=== PATIENT | female | born 1985 | race Caucasian/White ===

== ENCOUNTER → 2016-12-09 03:35 | Observation (INO) ==
--- NOTE | 2016-12-09 07:32 | OB/GYN Progress Note ---
Date of Encounter: 12/09/16 Time of Encounter: 07:30 - Assessment and Plan (1) 34 weeks gestation of Status: Acute (2) Decreased movement Status: Acute Pt reported movement. on admission. reactive NST with pt reports of frequent movement. Discharged home with labor and when to return to triage precautions. Qualifiers: Fetus number: single or unspecified fetus Trimester: third trimester Qualified Code(s): O36.8130 - Decreased movements, third trimester, not applicable or unspecified (3) NST (non-stress test) reactive Status: Acute baseline 135 Subjective - Subjective Interval history: Pt called CNM and stated her house had been painted with [place] yesterday with windows closed and AC on and now she had a headache, nausea and decreased movement that evening, but pt stated lots of movement in the morning and afternoon. Pt worried about baby, did not want to stay at home and do kick counts, denied contractions vaginal bleeding or leaking of fluid. Antepartum ROS: new complaints, no loss of fluid, no vaginal bleeding, no movement normal, no contractions Objective - Vital Signs Vital Signs: Intake and Output 12/08/16 12/08/16 12/09/16 15:59 23:59 07:59 Other: Weight 102.3 kg Patient Weight 12/09/16 23:59 Weight 102.3 kg - Exam FHR: auscultation normal FHR comments: Baseline 135 Abdomen: Present: normal appearance Cervical dilation: 1/thick/high per RN
== END | disposition home or self-care (01) ==
LOC: 1NENULAB
PROVIDERS: ADMIT Advanced Practice Midwife; ATTEND Advanced Practice Midwife

== ENCOUNTER → 2016-12-20 17:00 | Observation (INO) ==
[2016-12-20 16:07] LABS: Bilirubin,Urine Negative (Negative); Blood,Urine Negative (Negative); Clarity,Urine Clear (Clear); Color,Urine Yellow (Yellow); Glucose,Urine (UA) Normal (Normal); Ketones,Urine Negative (Negative); Leukocyte Esterase,Urine Negative (Negative); Nitrite,Urine Negative (Negative); PH,Urine 6.5 pH Units (5.0-8.0); Protein,Urine Negative (Neg-Trace); Specific Gravity,Urine 1.007 (1.010-1.025); Urobilinogen,Urine Normal (Normal)
--- NOTE | 2016-12-20 16:19 | OB/GYN Progress Note ---
Date of Encounter: 12/20/16 Time of Encounter: 16:08 - Assessment and Plan (1) False labor Current Visit: Yes Status: Acute No cervical change x2 exams Comfort measures discussed and precautions given Benadryl to help sleep Patient told to return if contractions worsen (2) 36 weeks gestation of Current Visit: Yes Status: Acute Will check GBS status Patient discharged in stable condition (3) NST (non-stress test) reactive Current Visit: No Status: Acute baseline 125 bpm moderate variability (4) Trichomonas infection Current Visit: Yes Status: Acute Infection noted on screen on 11/01/16 Flagyl was sent to pharmacy, but patient did not pick it up Will start flagyl 2 g once Will schedule for test of cure, but patient will most likely deliver beforehand (5) Obesity affecting in third trimester, antepartum Current Visit: Yes Status: Acute Subjective - Subjective Principal diagnosis: contractions Interval history: Patient is a 31 year-old female who presents to labor and delivery with contractions. Current is at 36 weeks and 2 days. Patients reports having contractions starting about 2 days ago, experienced as sharp pain, particularly in the back They have been as frequent as every 2-3 minutes, but the intensity and frequency have waxed and waned since starting. She admits to some nausea, but denies vomiting, diarrhea, and chest pain. She admits to headaches over the past three weeks, but denies visual disturbance and epigastric pain. She has been consistently normotensive in the office over that time period. Patient reports good movement. Patient denies vaginal bleeding and leakage of fluid. The patient's has been complicated by trichomonas, which she tested positive for on 11/01/16 and was given flagyl. She was last seen in the office by Dr. Girard on 12/14/16. Blood type: Rubella and Varicella Immune Hep B negative GBS unknown Trichomonas and Leanna positive on 11/01 All other serologies negative Antepartum ROS: movement normal, contractions, no loss of fluid, no vaginal bleeding Objective - Vital Signs Vital Signs: Intake and Output 12/20/16 12/20/16 12/20/16 07:59 15:59 23:59 Other: Weight 103.3 kg Patient Weight 12/20/16 23:59 Weight 103.3 kg - Exam Abdomen: Present: normal appearance, soft, gravid. Absent: tenderness Uterus: Present: normal, firm Cervical dilation: 1-2 Cervix effacement: 70% station: -2
== END | disposition home or self-care (01) ==
LOC: 1NENULAB
PROVIDERS: ADMIT Obstetrics & Gynecology; ATTEND Obstetrics & Gynecology

== ENCOUNTER → 2016-12-26 01:41 | Observation (INO) ==
--- NOTE | 2016-12-26 00:48 | OB/GYN Progress Note ---
Date of Encounter: 12/26/16 Time of Encounter: 12:30 - Assessment and Plan (1) 37 weeks gestation of Current Visit: Yes Status: Acute Evaluate for labor. Sterile cervical exams. Monitor FHT, tocometry. Will discharge if no labor progression. (2) Headache in Current Visit: Yes Status: Acute Cranial nerve exam unremarkable. Blood pressure WNL. PIH labs - WNL. Urine Protein:Creatinine ratio - WNL. Qualifiers: Qualified Code(s): O26.899 - Other specified related conditions, unspecified trimester; R51 - Headache (3) Petechiae Current Visit: Yes Status: Acute Medial tibia, bilaterally. CBC - platelets normal, no thrombocytopenia Subjective - Subjective Principal diagnosis: Labor evaluation, headache Interval history: Virgie Seay, 31F, at 37+1, presents to labor and delivery for complaint of pelvic pressure, new onset headache, and rash on both legs. Pt states she feels pressure but no contractions. Headache started during the day 9/, is diffuse, with pressure in the eyes, no blurry vision or nausea/vomiting, numbness or tingling. Rash started 2 days ago, is not warm to touch, non-tender , non-pruritic, non-blanching, pt reports no recent history of trauma/abrasion to area. Antepartum ROS: movement normal, no loss of fluid, no vaginal bleeding, no contractions Objective - Vital Signs Vital Signs: Intake and Output 12/25/16 12/25/16 12/26/16 15:59 23:59 07:59 Other: Weight 103.3 kg - Exam FHR: auscultation normal FHR comments: Baseline 130 Auscultation: bilateral: normal Abdomen: Present: normal appearance, gravid Cervical dilation: 2, posterior
[2016-12-26 00:51] LABS: Basophils # 0.1 K/mcL (0.0-0.2); Basophils % 0.4 %; Eosinophils # 0.2 K/mcL (0.0-0.6); Eosinophils % 1.1 %; Hematocrit 36.4 % (35.3-44.9); Hemoglobin 12.1 g/dL (11.5-15.4); Immature Granulocytes % 1.5 % (0-4); Lymphocytes # 2.1 K/mcL (0.6-4.6); Lymphocytes % 15.2 %; Mean Corpuscular HGB Conc 33.2 g/dL (31.6-35.5); Mean Corpuscular Hemoglobin 31.6 pg (28.0-33.3); Mean Platelet Volume 10.9 fL (9.4-12.4); Monocytes # 0.9 K/mcL (0.0-1.3); Monocytes % 6.6 %; Neutrophils # 10.2 K/mcL (1.6-8.9); Platelet Count 162 K/mcL (140-400); Red Blood Count 3.83 M/mcL (3.82-4.97); Segmented Neutrophils % 75.2 %
[2016-12-26 01:04] LABS: Alanine Aminotransferase 15 Units/L (0-55); Aspartate Amino Transferase 15 Units/L (5-34); BUN/Creatinine Ratio 11 (6-26); Blood Urea Nitrogen 8 mg/dL (7-20); Lactate Dehydrogenase 156 Units/L (159-327); Uric Acid 5.6 mg/dL (2.6-6.0); eGFR For African Americans > 60 (> 60); eGFR For Non-African Americans > 60 (> 60)
[2016-12-26 01:04] LABS: Amphetamine Screen,Urine Negative ng/mL (Cutoff=1000); Barbiturate Screen,Urine Negative ng/mL (Cutoff=200); Benzodiazepines Screen,Urine Negative ng/mL (Cutoff=200); Cannabinoid Screen,Urine Negative ng/mL (Cutoff = 50); Cocaine Screen,Urine Negative ng/mL (Cutoff= 300); Opiate Screen,Urine Negative ng/mL (Cutoff=300); Phencyclidine Screen,Urine Negative ng/mL (Cutoff=25)
[2016-12-26 01:07] LABS: Protein/Creatinine Ratio,Urine 0.12 mg/mg (0-0.20)
[~2016-12-26 01:41] MED LIST: Acetaminophen/Butalbital/CaffeineTABLET PO ONE
== END | disposition home or self-care (01) ==
LOC: 1NENULAB
PROVIDERS: ADMIT Student in an Organized Health Care Education/Training Program; ATTEND Student in an Organized Health Care Education/Training Program

== ENCOUNTER 2017-01-05 17:52 | Observation (INO) ==
[2017-01-05 19:40] LABS: Bilirubin,Urine Negative (Negative); Blood,Urine Negative (Negative); Clarity,Urine Cloudy (Clear); Color,Urine Yellow (Yellow); Glucose,Urine (UA) Normal (Normal); Ketones,Urine Negative (Negative); Leukocyte Esterase,Urine Small (Negative); Nitrite,Urine Negative (Negative); Protein,Urine Negative (Neg-Trace); Specific Gravity,Urine 1.018 (1.010-1.025); Urobilinogen,Urine Normal (Normal)
[2017-01-05 19:42] LABS: Bacteria,Urine Few per hpf (None-Few); Hyaline Casts,Urine None Seen per lpf (None-Few); RBC,Urine 0-3 per hpf (0-3); Squamous Epithelial Cell,Urine Many per lpf (None-Few); WBC,Urine 15-30 per hpf (0-3)
[2017-01-05 19:52] LABS: Uric Acid Crystals,Urine Present
--- NOTE | 2017-01-05 20:13 | OB/GYN Progress Note ---
Date of Encounter: 01/05/17 Time of Encounter: 20:10 - Assessment and Plan (1) Uterine contractions Current Visit: Yes Status: Acute No change in cervical exam after 2 hours, patient remains 3/100/-2. tracing reactive. UA sent for culture no indications to treat at this time. Discharged home with labor and when to return to triage precautions. Patient family verbalized understanding (2) 38 weeks gestation of Current Visit: Yes Status: Acute (3) NST (non-stress test) reactive Current Visit: Yes Status: Acute Baseline 130 Subjective - Subjective Interval history: 38+4 presents to triage with complaints of "menstrual pain". Patient states the pain has been going on since this morning and has strongly become stronger and more intense, patient states occasional contractions. Reports good movement, denies leaking of fluid or vaginal bleeding. Patient states she was 2/80 at last cervical exam Antepartum ROS: movement normal, contractions, no loss of fluid, no vaginal bleeding Objective - Vital Signs Vital Signs: Intake and Output 01/05/17 01/05/17 01/05/17 07:59 15:59 23:59 Other: Weight 102.9 kg Patient Weight 01/05/17 23:59 Weight 102.9 kg - Exam FHR: auscultation normal FHR comments: Baseline 130 Auscultation: bilateral: normal Abdomen: Present: normal appearance, soft, gravid Cervical dilation: 3/100/-2 - Labs Labs: Abnormal lab results Urine Clarity Cloudy (Clear) A 01/05/17 19:25 Ur Leukocyte Esterase Small (Negative) H 01/05/17 19:25 Urine Microscopic WBC 15-30 per hpf (0-3) H 01/05/17 19:25 Ur Squamous Epith Cells Many per lpf (None-Few) H 01/05/17 19:25 Ur Culture Indicated? YES (NO) A 01/05/17 19:25
[2017-01-05 22:08] LABS: Amphetamine Screen,Urine Negative ng/mL (Cutoff=1000); Barbiturate Screen,Urine Negative ng/mL (Cutoff=200); Benzodiazepines Screen,Urine Negative ng/mL (Cutoff=200); Cannabinoid Screen,Urine Negative ng/mL (Cutoff = 50); Cocaine Screen,Urine Negative ng/mL (Cutoff= 300); Opiate Screen,Urine Negative ng/mL (Cutoff=300); Phencyclidine Screen,Urine Negative ng/mL (Cutoff=25)
== END 2017-01-05 20:22 | disposition home or self-care (01) ==
LOC: 1NENULAB
PROVIDERS: ADMIT Obstetrics & Gynecology; ATTEND Obstetrics & Gynecology

== ENCOUNTER 2017-01-08 03:12 | Observation (INO) ==
[2017-01-08 03:35] VITALS: BP 136/70
[2017-01-08 03:50] LABS: Bilirubin,Urine Negative (Negative); Blood,Urine Negative (Negative); Clarity,Urine Cloudy (Clear); Color,Urine Yellow (Yellow); Glucose,Urine (UA) Normal (Normal); Ketones,Urine Negative (Negative); Leukocyte Esterase,Urine Moderate (Negative); Nitrite,Urine Negative (Negative); Protein,Urine Negative (Neg-Trace); Specific Gravity,Urine 1.014 (1.010-1.025); Urobilinogen,Urine Normal (Normal)
[2017-01-08 03:54] LABS: Bacteria,Urine Moderate per hpf (None-Few); Hyaline Casts,Urine None Seen per lpf (None-Few); Squamous Epithelial Cell,Urine Many per lpf (None-Few); WBC,Urine 50-100 per hpf (0-3)
[2017-01-08 03:55] LABS: Amphetamine Screen,Urine Negative ng/mL (Cutoff=1000); Barbiturate Screen,Urine Negative ng/mL (Cutoff=200); Benzodiazepines Screen,Urine Negative ng/mL (Cutoff=200); Cannabinoid Screen,Urine Negative ng/mL (Cutoff = 50); Cocaine Screen,Urine Negative ng/mL (Cutoff= 300); Opiate Screen,Urine Negative ng/mL (Cutoff=300); Phencyclidine Screen,Urine Negative ng/mL (Cutoff=25)
--- NOTE | 2017-01-08 05:23 | OB/GYN Progress Note ---
Date of Encounter: 01/08/17 Time of Encounter: 05:12 - Assessment and Plan (1) 39 weeks gestation of Status: Acute The patient was monitored for more than 2 hours without significant cervical change. Remains /0 per nursing She was discharged in stable condition with labor and when to return triage precautions. Patient verbalized understanding. (2) UTI (urinary tract infection) in in third trimester Status: Acute Urinalysis showed moderate leukocyte esterase, 3-5 RBC, 50-100 WBC, moderate bacteria, many squamous epithelial cells Prescription for keflex 500 mg 2 PO q12h x 7 days given (3) NST (non-stress test) reactive Status: Acute Baseline 135 bpm moderate variability Category 1 tracing (4) Obesity affecting in third trimester, antepartum Status: Acute Subjective - Subjective Principal diagnosis: "bubbles in urine", low back pain Interval history: I examined this patient and my medical decision-making was reviewed with the Resident Physician. I agree with the documented findings, disposition and treatment plan as described except to the extent set forth below. Virgie Seay is a 31 year-old G 1 P 0 female at 39 weeks who presents to labor and delivery for "bubbles in urine" and low back pain. She noticed the bubbles over the past day and notes increased frequency, even compared to her increase in frequency through . She denies dysuria and foul odor. The back pain is constant and 7/10 in intensity. It had started about 1 hour prior to presentation. Patient reports good movement. Patient denies vaginal bleeding, contractions, and rosa leakage of fluid, thought she does admit to noticing a wet spot on a chair after she had been sitting on it earlier yesterday. Patient admits to nausea. Patient denies vomiting, diarrhea, shortness of breath, chest pain, headache, visual disturbance, LE edema, and upper abdominal pain. The patient's has been complicated by trichinosis and ute diagnosed on 11/10/16. She was last seen here at [facility] by Meka Lovett CNM on 01/05/17 for "menstrual pain". She was 3/100/-2 at that visit. Her primary OB is Dr. Girard, who she last saw on 01/03/17. There was plan for induction of labor on 01/11/17. Blood type: AB+ Rubella and Varicella Immune Hep B negative GBS negative Trich and ute + on 11/01/16 All other serologies negative Antepartum ROS: movement normal, no loss of fluid, no vaginal bleeding, no contractions Objective - Vital Signs Vital Signs: Vital Signs Temp Pulse Resp BP 01/08/17 03:25 97.7 F 101 16 136/70 Intake and Output 01/07/17 01/07/17 01/08/17 15:59 23:59 07:59 Other: Weight 104.5 kg Patient Weight 01/08/17 23:59 Weight 104.5 kg - Exam FHR: category 1 FHR comments: Baseline 135 bpm Moderate variability Auscultation: bilateral: normal Abdomen: Present: normal appearance, soft, gravid. Absent: tenderness Uterus: Present: normal, firm Cervical dilation: 4 Cervix effacement: 90 station: 0 Comments: per nursing - Labs Labs: Abnormal lab results Urine Clarity Cloudy (Clear) A 01/08/17 03:38 Ur Leukocyte Esterase Moderate (Negative) H 01/08/17 03:38 Urine Microscopic RBC 3-5 per hpf (0-3) H 01/08/17 03:38 Urine Microscopic WBC 50-100 per hpf (0-3) H 01/08/17 03:38 Ur Squamous Epith Cells Many per lpf (None-Few) H 01/08/17 03:38 Urine Bacteria Moderate per hpf (None-Few) H 01/08/17 03:38 Ur Culture Indicated? YES (NO) A 01/08/17 03:38
== END 2017-01-08 05:45 | disposition home or self-care (01) ==
LOC: 1NENULAB
PROVIDERS: ADMIT Obstetrics & Gynecology; ATTEND Obstetrics & Gynecology

== ENCOUNTER 2017-01-08 19:54 | Observation (INO) ==
--- NOTE | 2017-01-08 21:04 | OB/GYN Progress Note ---
Date of Encounter: 01/08/17 Time of Encounter: 20:56 - Assessment and Plan (1) Uterine contractions Current Visit: Yes Status: Acute No cervical change since 0500 this morning Prescribed vistaril 25 mg one time dose prior to discharge for therapeutic rest We are avoiding morphine due to history of drug use Patient has someone else to drive her due to dose of vistaril prior to discharge. Discharge home with labor precautions. Follow up in office for routine care as scheduled and PRN (2) NST (non-stress test) reactive Current Visit: Yes Status: Acute Baseline 135 bpm Moderate variability Category 1 tracing (3) 39 weeks gestation of Current Visit: Yes Status: Acute Will monitor fetus for distress Will monitor monitor for cervical change Anticipate discharge later tonight Will send on strict return precautions Subjective - Subjective Principal diagnosis: contractions Interval history: Virgie Seay is a 31 year-old G 1 P 0 female at 39 weeks who presents to labor and delivery for increased low back pain with contractions. She was seen early this morning ([id number]), where she was 4/90/0 and did not make change management director the two hours she was here. She was sent home on 1000 mg keflex for UTI that was found on urinalysis. The contractions have become more intense and more frequent since then, and she has noticed some diaphoresis with the strongest ones. Patient reports good movement. Patient denies vaginal bleeding and loss of fluid. Patient admits to nausea. Patient denies vomiting, diarrhea, shortness of breath, chest pain, headache, visual disturbance, LE edema, and upper abdominal pain. The patient's has been complicated by trichinosis and ute diagnosed on 11/10/16. Her primary OB is Dr. Girard, who she last saw on 01/03/17. There was plan for induction of labor on 01/11/17. Blood type: AB+ Rubella and Varicella Immune Hep B negative GBS negative Trich and ute + on 11/01/16 All other serologies negative Antepartum ROS: movement normal, contractions, no loss of fluid, no vaginal bleeding Objective - Vital Signs Vital Signs: Intake and Output 01/08/17 01/08/17 01/08/17 07:59 15:59 23:59 Other: Weight 103.1 kg Patient Weight 01/08/17 23:59 Weight 103.1 kg - Exam FHR: category 1 FHR comments: baseline 135 bpm moderate variability Abdomen: Present: normal appearance, soft, gravid. Absent: tenderness Uterus: Present: normal, firm. Absent: tenderness Cervical dilation: 4 Cervix effacement: 90 station: 0 Comments: per nursing Attestation: I examined this patient and my medical decision-making was reviewed with the Resident Physician. I agree with the documented findings, disposition and treatment plan as described. Elva Bear CNM
[2017-01-08] MEDS ORDERED: hydrOXYzine pamoate 25 MG CAPSULE PO ONE (21:28)
== END 2017-01-08 21:45 | disposition home or self-care (01) ==
LOC: 1NENULAB
PROVIDERS: ADMIT Advanced Practice Midwife; ATTEND Advanced Practice Midwife

== ENCOUNTER 2017-01-11 05:45 | Inpatient (IN) ==
[2017-01-11] MEDS ORDERED: Famotidine 20 MG/2 ML VIAL IVP PRN (06:21)
[2017-01-11] MEDS ORDERED: Metoclopramide 10 MG/2 ML VIAL IVP PRN (06:21)
[2017-01-11] MEDS ORDERED: Oxytocin 20 units/ LR 1000 mL 20 UNIT/1,000 ML BAG IVC SCH (06:30)
[2017-01-11] MEDS ORDERED: FLUARIX QUAD 2017-18 36MOS UP/PF 0.5 ML SYRINGE IM ONE (06:41)
[2017-01-11 07:00] LABS: Basophils # 0.1 K/mcL (0.0-0.2); Basophils % 0.4 %; Eosinophils # 0.2 K/mcL (0.0-0.6); Eosinophils % 1.1 %; Hematocrit 38.9 % (35.3-44.9); Hemoglobin 12.7 g/dL (11.5-15.4); Immature Granulocytes % 1.4 % (0-4); Lymphocytes # 1.8 K/mcL (0.6-4.6); Lymphocytes % 12.3 %; Mean Corpuscular HGB Conc 32.6 g/dL (31.6-35.5); Mean Corpuscular Hemoglobin 32.4 pg (28.0-33.3); Mean Corpuscular Volume 99.2 fL (83.0-100.0); Mean Platelet Volume 11.6 fL (9.4-12.4); Monocytes # 0.8 K/mcL (0.0-1.3); Monocytes % 5.2 %; Neutrophils # 11.7 K/mcL (1.6-8.9); Platelet Count 135 K/mcL (140-400); Red Blood Count 3.92 M/mcL (3.82-4.97); Red Cell Distribution Width 14.5 % (11.5-14.5); Segmented Neutrophils % 79.6 %
[2017-01-11 07:10] LABS: Amphetamine Screen,Urine Negative ng/mL (Cutoff=1000); Barbiturate Screen,Urine Negative ng/mL (Cutoff=200); Benzodiazepines Screen,Urine Negative ng/mL (Cutoff=200); Cannabinoid Screen,Urine Negative ng/mL (Cutoff = 50); Cocaine Screen,Urine Negative ng/mL (Cutoff= 300); Opiate Screen,Urine Negative ng/mL (Cutoff=300); Phencyclidine Screen,Urine Negative ng/mL (Cutoff=25)
--- NOTE | 2017-01-11 07:13 | OB/GYN History & Physical ---
Date of Encounter: 01/11/17 Time of Encounter: 07:11 Assessment and Plan (1) 39 weeks gestation of Current visit: No Status: Acute Admit to labor and delivery for induction of labor. Induction via Pitocin as per Dr. Girard. Monitor FHTs/tocometry. Epidural if desired. Anticipate vaginal delivery. History of Present Illness Chief complaint: Induction of Labor HPI: Ms. Seay is a 31 year old female, , 39+3, presents to labor and delivery for induction of labor with Dr. Girard. Patient reports Avery Johnson with moving well. She states has not ruptured her membranes or had loss of fluid or bleed. Pt contractions every 3-5 minutes. Labs: Rubella and VZV immune. Blood type: AB positive. Past Med Surg Social Fam HX - Past Medical History Medical history: non-contributory Psychiatric history: depression, PTSD - Past Surgical History Surgical History: cholecystectomy, other - Social History Smoking Status: Current every day smoker Packs per day: 1 Smokeless Tobacco Status: No Alcohol use: none Drug use: cocaine, marijuana - Family History Mother Adopted: No Family Member Ethnicity: Non- Living Status: Still Living Hx Family Cardiac Disorders: No Hx Family Respiratory Disorders: No Hx Family Cancer: No Hx Family GI Disorders: No Hx Family Genitourinary Disorders: No Hx Family Endocrine Disorder: No Hx Family Musculoskeletal Disorders: Yes (OSTEOPOROSIS) Hx Family Neuromuscular Disorders: Yes (FIBROMYLGIA) Hx Family Neurologic Disorders: No Hx Family HEENT Disorders: No Hx Family Autoimmune Disorders: No Hx Family Reproductive Disorders: No Hx Family Psychosocial Disorders: No Hx Family Medical Disorders: No Obstetrical History - Pregnancies : 1 Medications and Allergies Child Multivitamins 1 tab PO DAILY 07/07/16 [History] Folic Acid 1 mg PO DAILY 07/07/16 [History] Omeprazole 20 mg PO DAILY 12/20/16 [History] Cephalexin [Keflex] 500 mg PO Q12H #14 capsule 01/08/17 [Rx] 3 Allergy/AdvReac Type Severity Reaction Status Date / Time sulfamethoxazole Allergy Anaphylaxis Verified 07/07/16 15:18 [From Bactrim] trimethoprim [From Bactrim] Allergy Anaphylaxis Verified 07/07/16 15:18 Review of System OB - Constitutional Constitutional ROS IM: no chills, no malaise - Cardiovascular Cardiovascular: no chest pain - Respiratory Respiratory: no dyspnea - Gastrointestinal Gastrointestinal: no abdominal pain - Psychiatric Psychiatric: no anxiety, no depression Exam - Vital Signs Vital signs: Initial Vital Signs Temp Pulse Resp BP 98.0 F 114 15 131/83 01/11/17 06:32 01/11/17 06:32 01/11/17 06:32 01/11/17 06:32 - Constitutional Constitutional: well developed, well nourished, no acute distress - HEENT HEENT: Normocephaly, Mucus Membranes Moist - Neck Neck exam: full ROM - Lungs Respiratory exam: CTAB - Cardiovascular Cardiovascular exam: +S1, +S2 - Cervix Dilation: 4 Results Result Diagrams: 01/11/17 00:49 Abnormal lab results WBC 14.7 K/mcL (4.3-11.1) H 01/11/17 00:49 Plt Count 135 K/mcL (140-400) L 01/11/17 00:49 Neutrophils # 11.7 K/mcL (1.6-8.9) H 01/11/17 00:49 All other labs normal. - VTE Reasons for not Prescribing Prophylaxis: Treatment not Indicated - Low risk for VTE
[2017-01-11] MEDS: Ringers Solution, Lactated 1,000 ML IVC SCH ×2 (07:39→14:32)
[2017-01-11] MEDS ORDERED: Bupivacaine-MPF 0.25% 10 ML VIAL EP ONE (10:14)
[2017-01-11] MEDS ORDERED: *HR* FentaNYL (PF) 100 MCG/2 ML VIAL EP ONE (10:14)
[2017-01-11] MEDS ORDERED: Epidural Premix (fent/bupiv) 110 ML EP SCH (10:15)
--- NOTE | 2017-01-11 10:28 | Anesthesia Evaluation PreOp ---
Date of Encounter: 01/11/17 Time of Encounter: 10:15 - Past History Planned Operation: labor epidural Cardiac History: Denies any Significant Hx Pulmonary History: Smoker (1/2ppd for 16 years. denies asthma or disease.) SOFTWARE DEVELOPMENT ADVISOR History: Denies Any Significant HX Other Medical History: Other (History of acute myeloid leukemia, diagnosed september 2014. Received 6 rounds of chemotherapy and was declared in remission in January 2015. No further problems or complications related to the disease.) Anesthesia History: No Prior Anesthetic Complications, Past Anesthesia (lap ellen, port placement and removal. No problems with family having general anesthesia.) : Yes Alcohol Use: none Drug use: cocaine, marijuana Medications and Allergies Child Multivitamins 1 tab PO DAILY 07/07/16 [History] Folic Acid 1 mg PO DAILY 07/07/16 [History] Omeprazole 20 mg PO DAILY 12/20/16 [History] Cephalexin [Keflex] 500 mg PO Q12H #14 capsule 01/08/17 [Rx] 3 Allergy/AdvReac Type Severity Reaction Status Date / Time sulfamethoxazole Allergy Anaphylaxis Verified 07/07/16 15:18 [From Bactrim] trimethoprim [From Bactrim] Allergy Anaphylaxis Verified 07/07/16 15:18 - Meds/Allergy Pre-op Review Medications Reviewed: Yes Allergies Reviewed: Yes Beta Blockers on Current Med List: No Anesthesia Results - Labs 01/11/17 00:49 Anesthesia Exam VSS and FHTs stable. Height: 5'4" Weight: 105kg NPO (# of Hours): >6 hours Pain Scale: 10 Pain Scale Used: Numeric (1 - 10) - HEENT Pupil (Motor): Pupils equal Mallampati: III Teeth: Normal Denture Type: Lower: Partial - SOFTWARE DEVELOPMENT ADVISOR LOC: Oriented SOFTWARE DEVELOPMENT ADVISOR Motor: Normal RUE, Normal LUE, Normal RLE, Normal LLE, Normal Face SOFTWARE DEVELOPMENT ADVISOR Sensory: Normal: RUE, LUE, RLE, LLE, Face - Cardiac Rhythm: Regular - Pulmonary Breath Sounds: bilateral Clear, bilateral Rales, bilateral Rhonchi Respiratory Effort: Symmetrical Anesthesia Assess/Plan ASA Score: 3 Modified Jerald Scale for Level of Consciousness: Cooperative, oriented, and tranquil Anesthetic Plan: Regional Monitoring Plan: Standard Monitors
[2017-01-11] MEDS ORDERED: *HR* FentaNYL (PF) 100 MCG/2 ML VIAL ONE ×2 (10:57→18:33)
[2017-01-11] MEDS ORDERED: Bupivacaine-MPF 0.25% 10 ML VIAL ONE ×2 (10:57→18:33)
[2017-01-11] MEDS ORDERED: Epidural Premix (fent/bupiv) 110 ML EP ONE ×3 (10:58→23:48)
--- NOTE | 2017-01-11 11:34 | Anesthesia Procedures ---
Date of Encounter: 01/11/17 Time of Encounter: 11:06 Procedures: Anesthesia - Epidural/Spinal Patient ID/Chart reviewed: Yes Patient examined: Yes OB Eval: Gestational age: 39 OB Eval: : 1 OB Eval: Hx Para: 0 OB Eval: Dilated at (cm): 4 OB Eval: Contractions: Non-stressed pattern Consent Obtained: Yes Supplemental Oxygen: None/Room Air Site Prep: Aseptic Technique, Sterile prep and drape, Povidone-Iodine 1% Patient position: upright Local Anesthetic: Lidocaine 1% Amount of Local Anesthetic used: 3 Touhy Needle Gauge: 18 Touhy Needle Depth (cm): 5 Catheter Depth at Skin (cm): 15 Test Dose (1.5% Lido + Epi): Volume given (mls): 3 Test Dose Result: Negative Loading Dose: 0.25% Marcaine (mls): 8 Loading Dose: Fentanyl (mcg): 100 Loading Dose Administered: Thru Catheter Infusion Med: 0.125% Bupivacaine w/ 2 mcg/ml Fentanyl Infusion Rate (mls/hr): [address]: Tegaderm, Tape Interspace Used: L3-L4 Loss of Resistance (JOE): Yes Blood: No CSF: No Paresthesia: No Vitals + FHT's: 3 Vital Signs Time 1106 1120 1125 1130 BP 139/60 128/84 122/78 123/78 Pulse 97 82 84 89 FHTs 140 130 130 130
--- NOTE | 2017-01-11 13:10 | OB Labor Progress Note ---
Date of Encounter: 01/11/17 Time of Encounter: 13:08 Labor Progress Note - Subjective Subjective: Pt comfortable with epidural. - Cervix Cervix: 4-5/90/-1 - Heart Tones Heart Tones: FHT were difficult to trace immediately following AROM. FSE placed. FHT reassuring at this time. - [place]: 2-4 - Interventions Interventions: AROM for small amount clear fluid. IUPC and FSE placed. - Plan Plan: Continue to monitor. Anticipate .
[2017-01-11] MEDS ORDERED: Ondansetron 4 MG/2 ML VIAL IVP PRN (13:54)
[2017-01-11] MEDS ORDERED: *HR* Nalbuphine 20 MG/ML AMPUL IVP PRN (15:21)
[2017-01-11] MEDS ORDERED: Famotidine 20 MG/2 ML VIAL IVP ONE (18:09)
--- NOTE | 2017-01-12 02:31 | OB Labor Progress Note ---
Date of Encounter: 01/12/17 Time of Encounter: 02:28 Labor Progress Note - Subjective Subjective: Pt comfortable at this time. - Heart Tones Heart Tones: Category I at this time. - [place]: irregular - Plan Plan: Continue to titrate pitocin. Will begin pushing when pt has pressure. Anticipate .
--- NOTE | 2017-01-12 05:25 | OB/GYN Procedure Note ---
Delivery - Delivery Date: 01/12/17 Provider: Tyler Girard Intrapartum events: none Delivery induction: AROM, oxytocin Delivery monitor: external FHT Anesthesia: epidural Estimated Blood Loss: 300 - Infant (s) A Presentation: vertex Position: RULA Route of delivery: Gender: Male Placenta: spontaneous Cord: 3 umbilical vessels - Repair Episiotomy: none Laceration Description: None - Complications Delivery complications: none - Disposition Mom disposition: stable in LDR disposition: stable in LDR - Comments Comments: 31 y/o now @ 39+ weeks delivered a viable male weighing 2990g ( 6lbs 9oz) @ 0458hrs, delivered RULA, no nuchal cord, cord clamped and cut , placenta delivered @ 0502 hrs, EBL 300, no lacerations, Methergine 0.2 and cytotec 1000mcg given. Infant and mother doing very well.
[2017-01-12] MEDS ORDERED: Acetaminophen 325 MG TABLET PO PRN (05:27)
[2017-01-12] MEDS ORDERED: Measles/Mumps/Rubella Vacc 0.5 ML VIAL SQ PRN (05:27)
[2017-01-12] MEDS ORDERED: Oxytocin 20 units/ LR 1000 mL 20 UNIT/1,000 ML BAG IVC SCH (05:27)
[2017-01-12] MEDS ORDERED: Ondansetron 4 MG/2 ML VIAL IVP PRN (08:58)
[2017-01-12] MEDS ORDERED: Prenatal Vit/FA 1 EACH TABLET PO SCH (09:00)
[2017-01-12] MEDS: Ibuprofen 600 MG TABLET PO PRN (20:23)
[2017-01-13 08:19] VITALS: BP 113/77
[2017-01-13] MEDS: Ibuprofen 600 MG TABLET PO PRN (08:48)
--- NOTE | 2017-01-13 09:54 | Discharge Summary ---
Date of Encounter: 01/13/17 Time of Encounter: 09:56 - Discharge Diagnosis (1) (normal spontaneous vaginal delivery) Priority: Primary Status: Acute Comments: doing well, will d/c home. - Discharge Medications Prescriptions: Ibuprofen [Motrin] 600 mg PO Q6HR PRN #40 tablet PRN Reason: Cramping Home Medications: Child Multivitamins 1 tab PO DAILY 07/07/16 [History] Folic Acid 1 mg PO DAILY 07/07/16 [History] Omeprazole 20 mg PO DAILY 12/20/16 [History] Cephalexin [Keflex] 500 mg PO Q12H #14 capsule 01/08/17 [Rx] Ibuprofen [Motrin] 600 mg PO Q6HR PRN #40 tablet 01/13/17 [Rx] Allergies/Adverse Reactions: 3 Allergy/AdvReac Type Severity Reaction Status Date / Time sulfamethoxazole Allergy Anaphylaxis Verified 07/07/16 15:18 [From Bactrim] trimethoprim [From Bactrim] Allergy Anaphylaxis Verified 07/07/16 15:18 Data Procedures and tests throughout hospitalization: Laboratory Tests 01/11/17 01/11/17 00:49 00:49 WBC 14.7 H RBC 3.92 Hgb 12.7 Hct 38.9 MCV 99.2 MCH 32.4 MCHC 32.6 RDW 14.5 Plt Count 135 L MPV 11.6 Immature Gran % 1.4 Seg Neutrophils % 79.6 Lymphocytes % 12.3 Monocytes % 5.2 Eosinophils % 1.1 Basophils % 0.4 Neutrophils # 11.7 H Lymphocytes # 1.8 Monocytes # 0.8 Eosinophils # 0.2 Basophils # 0.1 Urine Opiates Screen Negative Ur Barbiturates Screen Negative Ur Phencyclidine Scrn Negative Ur Amphetamines Screen Negative U Benzodiazepines Scrn Negative Urine Cocaine Screen Negative U Marijuana (THC) Screen Negative - Impressions Doing well without c/o. No c/o. Date of admission: 01/11/17 05:45 Primary care physician: Girish Sterling MD Consults: 01/12/17 05:27 Consult to Bankruptcy Paralegal [CONS] Routine Reason for SW Consult: needs cord stat - Patient Status Disposition: Home, Self-Care Condition: Good Functional capacity at discharge: independent ambulation Overall status at discharge: patient is progressing back to baseline - Discharge Instructions Follow Up With: Tyler Girard MD [Partnered Physician] - - Diet and Activity Activity: increase activity as tolerated Diet: advance to your usual diet Hospital Course HYDROPULPER Time Attestation: Total time spent providing and/or coordinating discharge services: Exam - Constitutional Vitals: Temp Pulse Resp BP Pulse Ox 97.8 F 80 12 113/77 95 01/13/17 07:55 01/13/17 07:55 01/13/17 07:55 01/13/17 07:55 01/13/17 07:55 General appearance IM: A&O X 3 - Respiratory Respiratory exam: Present: CTAB - Cardiovascular Cardiovascular exam IM: Present: RRR - GI/Abdominal GI/Abdominal exam IM: normal bowel sounds - Uterus Position: 2 Fingers Below Umbilicus - Extremities Exam Extremities exam IM: Present: full ROM - Neurological Exam Neurological exam: oriented X3 - VTE Reasons for not Prescribing Prophylaxis: Treatment not Indicated - Low risk for VTE
[2017-01-13] MEDS ORDERED: miSOPROStol 100 MCG TABLET PO ONE (12:26)
[2017-01-13] MEDS ORDERED: Methylergonovine 0.2 MG/ML AMPUL IM ONE (12:26)
== END 2017-01-13 12:27 | disposition home or self-care (01) | DRG 560 ==
LOC: 1NENULAB 05:45 → 1NENUOBS 01-12 08:47
PROVIDERS: ADMIT Student in an Organized Health Care Education/Training Program; ATTEND Student in an Organized Health Care Education/Training Program